=== PATIENT | male | born 1990 | race Caucasian/White ===

== ENCOUNTER 2017-05-22 11:28 | Emergency (ER) | payer OTHER ==
--- NOTE | 2017-05-22 12:58 | DIAGNOSTIC IMAGING REPORT ---
PROCEDURE: US SCROTUM/TESTICLE INDICATION: SCROTAL PAIN TECHNIQUE: Harvey scale and color Doppler sonographic images through the scrotum were obtained. COMPARISON: None. FINDINGS: RIGHT TESTICLE: Measures 4.0 x 2.7 x 2.5 cm with normal echo structure and vascularity. Normal epididymis. LEFT TESTICLE: Measures 4.0 x 2.5 x 2.3 cm with normal echo structure. Normal vascularity at the beginning of the exam but markedly diminished vascularity at the end of the exam although still present. Normal epididymis. IMPRESSION: 1. Left testicular vascularity was noted to diminish markedly during the examination, although still present. This raise the possibility of intermittent testicular torsion 2. Normal right testicle 3. Results discussed with Dr. Lucero
--- NOTE | 2017-05-22 12:59 | ED NURSING NOTES ---
Clinical Report - Nurses [facility] [address] [place] [address] 05/22/2017 11:30 [id number] TRI[facility] <<STRICKEN ENTRY-- Triage time 11:38 May 22 2017. Acuity: LEVEL 4. Chief Complaint: PAIN WITH URINATION and URINARY RETENTION and TESTICULAR PAIN. Alert. No acute distress. --11:42 Vinnie Gongora R.N. --END STRIKE>> Correction --12:14 Vinnie Gongora R.N. 11:38 05/22/17. BP: 128/75. HR: 53. RR: 20. O2 saturation: 98% on room air. Temp: 97.9 F. Pain level now: 05/17. --11:42 Vinnie Gongora R.N. Triage time 1138 May 22 2017. Chief Complaint: TESTICULAR PAIN. --12:15 Vinnie Gongora R.N. Weight: 61.2 kg. Height/Length: 68 inches. BMI: 20.5. --11:37 Vinnie Gongora R.N. Medications None. --11:38 Vinnie Gongora R.N. Allergies No Known Drug Allergy. --11:38 Vinnie Gongora R.N. History Arrived by private vehicle. Historian: patient. This started just prior to arrival and today. ( Pt was in the shower when he noticed some "testicular tension" that was abrupt in onset has progressively gotten worse. He denies any injury, states his L testicle feels like it is twisting and feels cool to the touch.). He has had discomfort with urination. No fever. PAST MEDICAL HX: Immunizations: up-to-date. SOCIAL HX: Heavy tobacco smoker- less than 1 pack per day. History of drug use: heroin, methamphetamines. No alcohol use. No infectious disease exposure. ABUSE ASSESSMENT: No report of abuse. SELF HARM ASSESSMENT: A self harm assessment was performed. The patient answered "no" to the question "Do you have thoughts of harming or killing yourself?". FALL RISK ASSESSMENT: Fall risk assessment completed. No fall risk identified. NUTRITIONAL RISK ASSESSMENT: The nutritional risk assessment revealed no deficiencies. FUNCTIONAL ASSESSMENT: Functional assessment: no impairments noted. LEARNING NEEDS ASSESSMENT: The learning needs assessment revealed no barriers. SKIN INTEGRITY ASSESSMENT: Skin integrity risk assessment completed. No skin integrity risk identified. --11:42 Vinnie Gongora R.N. Arrived by private vehicle. Historian: patient. Accompanied by friend and (in [place]). This started just prior to arrival. --12:15 Vinnie Gongora R.N. PROBLEMS: Anxiety Reaction. Lifestyle / Substance Problems. Chest Pain of GI Origin. --11:38 Vinnie Gongora R.N. ADDITIONAL SURGERIES: no known surgeries. Interventions ID band on patient. To treatment room. --11:42 Vinnie Gongora R.N. PHYSICAL ASSESSMENT Ambulatory to room. GENERAL / NEURO / PSYCH: Alert. Oriented X 4. Appears in pain and in distress. HEENT: Mucous membranes are pink. RESPIRATORY: Mild respiratory distress. CVS: Capillary refill less than 2 seconds. SKIN: Skin is warm and dry. --11:44 Vinnie Gongora R.N. GI / : Abdomen soft. Guarding present in the suprapubic area and lower abdomen. Bowel sounds within normal limits. Normal genitalia. No genital lesions noted. --12:22 Vinnie Gongora R.N. NURSING PROGRESS NOTES The plan of care for this patient has been created. Monitoring of patient in place. Patient gowned. Head of bed elevated. Reassurance given. Two patient identifiers checked. Call light placed in reach. Side rails up x 2. Brakes of bed on. Patient ready for evaluation- ED physician notified. --11:44 Vinnie Gongora R.N. ( in to assess Pt, Pt is in severe pain, orders for pain and nausea meds obtained and given, IVF started, US ordered. Pt resting in room, monitoring VS.). --11:58 Vinnie Gongora R.N. 11:59 05/22/2017 Site #1 started via IV in the left antecubital space with an 20g angiocath, with aseptic technique and good blood return; one attempt. Blood drawn: rainbow set. Saline lock flushed with saline. --11:59 Vinnie Gongora R.N. 11:59 05/22/2017 Zofran (Ondansetron HCl) IVP 4 mg given over 2 minute(s) via site #1. IV patency established. IV site checked: no pain, redness, or swelling. IV flushed thoroughly pre- and post-medication administration. IVP given by RN. --11:59 Vinnie Gongora R.N. 11:05/22/2017 Dilaudid (HYDROmorphone HCl PF) IVP 1 mg given over 2 minute(s) via site #1. Sedative warning given to the patient. IV patency established. IV site checked: no pain, redness, or swelling. IV flushed thoroughly pre- and post-medication administration. IVP given by RN. --11:59 Vinnie Gongora R.N. 11:05/22/2017 Started bag #1 1000 mL IV Fluids IV NS (Saline); bolus of 500 mL over 1 hour(s) via site #1. Allergies verified and confirmed 5 rights. IV patency established. IV site checked: no pain, redness, or swelling. IV flushed thoroughly pre- and post-medication administration. Completed per protocol. --11:59 Vinnie Gongora R.N. ( ultrasound called states they will be over in 20 minutes for exam. Told chief radiologic technologist that exam is needed urgently due to possibility of torsion.). --12:17 Adri Feldman R.N. Checked patient name and birthdate: patient confirmed. Instructions provided to collect clean catch urine and patient verbalized understanding. Clean catch urine collected with return of yellow-colored urine; sample sent to lab. Specimen labeled in the presence of the patient. ( Pt provided urine sample without difficulty.). --12:20 Vinnie Gongora R.N. ( US tech at bedside now.). --12:29 Vinnie Gongora R.N. 12:30 05/22/2017 Zofran IVP Response: no adverse reaction symptoms are the same. --12:30 Vinnie Gongora R.N. 12:30 05/22/2017 Dilaudid IVP Response: pain is improving. Symptoms are the same. --12:30 Vinnie Gongora R.N. 12:45 05/22/17. BP: 135/82. HR: 80. RR: 20. O2 saturation: 100% on room air. Pain level now: 04/17. --12:47 Vinnie Gongora R.N. ( US completed, Pt c/o pain, states his mouth is dry, provided him with oral swab, VSS.). --12:47 Vinnie Gongora R.N. 12:51 05/22/2017 Dilaudid (HYDROmorphone HCl PF) IVP 1 mg given over 2 minute(s) via site #1. Allergies verified, confirmed 5 rights and sedative warning given to the patient. IV patency established. IV site checked: no pain, redness, or swelling. IV flushed thoroughly pre- and post-medication administration. IVP given by RN. --12:51 Vinnie Gongora R.N. ( Pt's friend (Boogie) at bedside.). --13:03 Vinnie Gongora R.N. 13:18 05/22/2017 IV Fluids IV NS Discontinued: bag #1 infused. Total amount infused: 1000 mL. IV patency established. IV site checked: no pain, redness, or swelling. IV flushed thoroughly. --13:18 Vinnie Gongora R.N. 13:22 05/22/17. BP: 128/94. HR: 74. RR: 16. O2 saturation: 97% on room air. Pain level now: 03/17. --13:23 Vinnie Gongora R.N. 13:34 05/22/2017 Dilaudid IVP Response: no adverse reaction pain is worsening. --13:34 Vinnie Gongora R.N. 13:37 05/22/2017 Dilaudid (HYDROmorphone HCl PF) IVP 1 mg given over 2 minute(s) via site #1. Allergies verified, confirmed 5 rights and sedative warning given to the patient. IV patency established. IV site checked: no pain, redness, or swelling. IV flushed thoroughly pre- and post-medication administration. IVP given by RN. --13:37 Vinnie Gongora R.N. ( MD in to discuss recommended Plan of Care for Pt including transfer of care to [facility] to care of Dr. Cohen (urologist). Pt verbalized to me that he does not want to do that, has no money to pay for an ambulance. MD discussed risks/benefits and urgent need for Pt to get to [facility]. Reviewed other risks of traveling via ambulance, Pt's friend at bedside. Pt tearful but verbalized understanding and agreed to be transported via [facility]; COBRA form signed.). --13:44 Vinnie Gongora R.N. 13:41 05/22/17. Temp: 97.8 F. --13:44 Vinnie Gongora R.N. Intake & Output late entry - 12:00 05/22/17. Urine: 200 mL, with return of yellow-colored urine. --12:53 Vinnie Gongora R.N. Urine: 300 mL - urinal, with return of yellow-colored urine. --13:16 Vinnie Gongora R.N. DISPOSITION / DISCHARGE late entry - 13:45 05/22/17. Departure time: 13:45 May 22 2017. Condition at departure: stable. Transferred to [facility]. Summary of care provided to transport team via paper (Care transferred to [facility] Transported via ambulance by transport team with IV. ( Pt transported to [facility], stable, medicated with pain meds prior to transport, VSS, understanding of POC verified. Belongings in hand.). Patient's personal items include: shirt, pants, undergarments, socks, shoes, wallet and cell phone; items were placed in belongings bag and transported with the patient. Collection of belongings was witnessed by 1 nurse. --14:08 Vinnie Gongora R.N. 13:45 05/22/17. BP: 105/64. HR: 80. RR: 18. O2 saturation: 95% on room air. Temp: deferred. Pain level now: 03/17. --14:08 Vinnie Gongora R.N. Locked/Released at 05/22/2017 17:02 by Vinnie Gongora R.N.
--- NOTE | 2017-05-22 12:59 | ED NURSING NOTES ---
Clinical Report - Nurses [facility] [address] [place] [address] 05/22/2017 11:30 [id number] <<STRICKEN ENTRY-- Triage time 11:38 May 22 2017. Acuity: LEVEL 4. Chief Complaint: PAIN WITH URINATION and URINARY RETENTION and TESTICULAR PAIN. Alert. No acute distress. --11:42 Vinnie Gongora R.N. --END STRIKE>> Correction --12:14 Vinnie Gongora R.N. 11:38 05/22/17. BP: 128/75. HR: 53. RR: 20. O2 saturation: 98% on room air. Temp: 97.9 F. Pain level now: 05/17. --11:42 Vinnie Gongora R.N. Triage time 1138 May 22 2017. Chief Complaint: TESTICULAR PAIN. --12:15 Vinnie Gongora R.N. Weight: 61.2 kg. Height/Length: 68 inches. BMI: 20.5. --11:37 Vinnie Gongora R.N. Medications None. --11:38 Vinnie Gongora R.N. Allergies No Known Drug Allergy. --11:38 Vinnie Gongora R.N. History Arrived by private vehicle. Historian: patient. This started just prior to arrival and today. ( Pt was in the shower when he noticed some "testicular tension" that was abrupt in onset has progressively gotten worse. He denies any injury, states his L testicle feels like it is twisting and feels cool to the touch.). He has had discomfort with urination. No fever. PAST MEDICAL HX: Immunizations: up-to-date. SOCIAL HX: Heavy tobacco smoker- less than 1 pack per day. History of drug use: heroin, methamphetamines. No alcohol use. No infectious disease exposure. ABUSE ASSESSMENT: No report of abuse. SELF HARM ASSESSMENT: A self harm assessment was performed. The patient answered "no" to the question "Do you have thoughts of harming or killing yourself?". FALL RISK ASSESSMENT: Fall risk assessment completed. No fall risk identified. NUTRITIONAL RISK ASSESSMENT: The nutritional risk assessment revealed no deficiencies. FUNCTIONAL ASSESSMENT: Functional assessment: no impairments noted. LEARNING NEEDS ASSESSMENT: The learning needs assessment revealed no barriers. SKIN INTEGRITY ASSESSMENT: Skin integrity risk assessment completed. No skin integrity risk identified. --11:42 Vinnie Gongora R.N. Arrived by private vehicle. Historian: patient. Accompanied by friend and (in [place]). This started just prior to arrival. --12:15 Vinnie Gongora R.N. PROBLEMS: Anxiety Reaction. Lifestyle / Substance Problems. Chest Pain of GI Origin. --11:38 Vinnie Gongora R.N. ADDITIONAL SURGERIES: no known surgeries. Interventions ID band on patient. To treatment room. --11:42 Vinnie Gongora R.N. PHYSICAL ASSESSMENT Ambulatory to room. GENERAL / NEURO / PSYCH: Alert. Oriented X 4. Appears in pain and in distress. HEENT: Mucous membranes are pink. RESPIRATORY: Mild respiratory distress. CVS: Capillary refill less than 2 seconds. SKIN: Skin is warm and dry. --11:44 Vinnie Gongroa R.N. GI / : Abdomen soft. Guarding present in the suprapubic area and lower abdomen. Bowel sounds within normal limits. Normal genitalia. No genital lesions noted. --12:22 Vinnie Gongora R.N. NURSING PROGRESS NOTES The plan of care for this patient has been created. Monitoring of patient in place. Patient gowned. Head of bed elevated. Reassurance given. Two patient identifiers checked. Call light placed in reach. Side rails up x 2. Brakes of bed on. Patient ready for evaluation- ED physician notified. --11:44 Vinnie Gongora R.N. ( in to assess Pt, Pt is in severe pain, orders for pain and nausea meds obtained and given, IVF started, US ordered. Pt resting in room, monitoring VS.). --11:58 Vinnie Gongora R.N. 11:59 05/22/2017 Site #1 started via IV in the left antecubital space with an 20g angiocath, with aseptic technique and good blood return; one attempt. Blood drawn: rainbow set. Saline lock flushed with saline. --11:59 Vinnie Gongora R.N. 11:59 05/22/2017 Zofran (Ondansetron HCl) IVP 4 mg given over 2 minute(s) via site #1. IV patency established. IV site checked: no pain, redness, or swelling. IV flushed thoroughly pre- and post-medication administration. IVP given by RN. --11:59 Vinnie Gongora R.N. 11:05/22/2017 Dilaudid (HYDROmorphone HCl PF) IVP 1 mg given over 2 minute(s) via site #1. Sedative warning given to the patient. IV patency established. IV site checked: no pain, redness, or swelling. IV flushed thoroughly pre- and post-medication administration. IVP given by RN. --11:59 Vinnie Gongora R.N. 11:05/22/2017 Started bag #1 1000 mL IV Fluids IV NS (Saline); bolus of 500 mL over 1 hour(s) via site #1. Allergies verified and confirmed 5 rights. IV patency established. IV site checked: no pain, redness, or swelling. IV flushed thoroughly pre- and post-medication administration. Completed per protocol. --11:59 Vinnie Gongora R.N. ( ultrasound called states they will be over in 20 minutes for exam. Told air conditioning technician that exam is needed urgently due to possibility of torsion.). --12:17 Adri Feldman R.N. Checked patient name and birthdate: patient confirmed. Instructions provided to collect clean catch urine and patient verbalized understanding. Clean catch urine collected with return of yellow-colored urine; sample sent to lab. Specimen labeled in the presence of the patient. ( Pt provided urine sample without difficulty.). --12:20 Vinnie Gongora R.N. ( US tech at bedside now.). --12:29 Vinnie Gongora R.N. 12:30 05/22/2017 Zofran IVP Response: no adverse reaction symptoms are the same. --12:30 Vinnie Gongora R.N. 12:30 05/22/2017 Dilaudid IVP Response: pain is improving. Symptoms are the same. --12:30 Vinnie Gongora R.N. 12:45 05/22/17. BP: 135/82. HR: 80. RR: 20. O2 saturation: 100% on room air. Pain level now: 04/17. --12:47 Vinnie Gongora R.N. ( US completed, Pt c/o pain, states his mouth is dry, provided him with oral swab, VSS.). --12:47 Vinnie Gongora R.N. 12:51 05/22/2017 Dilaudid (HYDROmorphone HCl PF) IVP 1 mg given over 2 minute(s) via site #1. Allergies verified, confirmed 5 rights and sedative warning given to the patient. IV patency established. IV site checked: no pain, redness, or swelling. IV flushed thoroughly pre- and post-medication administration. IVP given by RN. --12:51 Vinnie Gongora R.N. ( Pt's friend (Boogie) at bedside.). --13:03 Vinnie Gongora R.N. 13:18 05/22/2017 IV Fluids IV NS Discontinued: bag #1 infused. Total amount infused: 1000 mL. IV patency established. IV site checked: no pain, redness, or swelling. IV flushed thoroughly. --13:18 Vinnie Gongora R.N. 13:22 05/22/17. BP: 128/94. HR: 74. RR: 16. O2 saturation: 97% on room air. Pain level now: 03/17. --13:23 Vinnie Gongora R.N. 13:34 05/22/2017 Dilaudid IVP Response: no adverse reaction pain is worsening. --13:34 Vinnie Gongora R.N. 13:37 05/22/2017 Dilaudid (HYDROmorphone HCl PF) IVP 1 mg given over 2 minute(s) via site #1. Allergies verified, confirmed 5 rights and sedative warning given to the patient. IV patency established. IV site checked: no pain, redness, or swelling. IV flushed thoroughly pre- and post-medication administration. IVP given by RN. --13:37 Vinnie Gongora R.N. ( MD in to discuss recommended Plan of Care for Pt including transfer of care to [facility] to care of Dr. Cohen (urologist). Pt verbalized to me that he does not want to do that, has no money to pay for an ambulance. MD discussed risks/benefits and urgent need for Pt to get to [facility]. Reviewed other risks of traveling via ambulance, Pt's friend at bedside. Pt tearful but verbalized understanding and agreed to be transported via [facility]; COBRA form signed.). --13:44 Vinnie Gongora R.N. 13:41 05/22/17. Temp: 97.8 F. --13:44 Vinnie Gongora R.N. Intake & Output late entry - 12:00 05/22/17. Urine: 200 mL, with return of yellow-colored urine. --12:53 Vinnie Gongora R.N. Urine: 300 mL - urinal, with return of yellow-colored urine. --13:16 Vinnie Gongora R.N. DISPOSITION / DISCHARGE late entry - 13:45 05/22/17. Departure time: 13:45 May 22 2017. Condition at departure: stable. Transferred to [facility]. Summary of care provided to transport team via paper (Care transferred to [facility].). Transported via ambulance by transport team with IV. ( Pt transported to [facility], stable, medicated with pain meds prior to transport, VSS, understanding of POC verified. Belongings in hand.). Patient's personal items include: shirt, pants, undergarments, socks, shoes, wallet and cell phone; items were placed in belongings bag and transported with the patient. Collection of belongings was witnessed by 1 nurse. --14:08 Vinnie Gongora R.N. 13:45 05/22/17. BP: 105/64. HR: 80. RR: 18. O2 saturation: 95% on room air. Temp: deferred. Pain level now: 03/17. --14:08 Vinnie Gongora R.N. Locked/Released at 05/22/2017 17:02 by Vinnie Gongora R.N.
--- NOTE | 2017-05-22 12:59 | ED ORDER SUMMARY ---
..... Patient: KETURAH MORIN OrderSheet [facility] VisitID: [id number] [place] [address] 27y, M Registration Date/Time: 05/22/2017 ORDER SHEET Weight: 61.2 kg Allergies: No Known Drug Allergy GENERAL ORDERS: US Scrotum/Testicular Urgent (11:55 05/22/2017 Briana YEPEZ) (Ack 11:56 Butch) (12:50 MCook R.N.) CBC w Diff Urgent (11:55 05/22/2017 Briana YEPEZ) (Ack 11:56 Butch) (11:57 MCook R.N.) CMP Urgent (11:55 05/22/2017 Briana YEPEZ) (Ack 11:56 Butch) (11:57 MCook R.N.) UA-Culture if indicated Urgent (11:55 05/22/2017 Briana YEPEZ) (Ack 11:56 Butch) (12:22 MCook R.N.) Amylase Urgent (11:55 05/22/2017 Briana YEPEZ) (Ack 11:56 Butch) (11:57 MCook R.N.) Lipase Urgent (11:55 05/22/2017 Briana YEPEZ) (Ack 11:56 Butch) (11:57 MCook R.N.) NPO (11:55 05/22/2017 Briana YEPEZ) (11:57 MCook R.N.) Urine Drug Screen Urgent (11:05/22/2017 Briana EYPEZ) (Sent 11:57 MCook R.N.) (Ack 11:57 Butch) (12:22 MCook R.N.) MEDICATION ORDERS: IV FLUIDS: IV NS : initial bolus 500 mL (1000 mL/hr), then 125 mL/hr for 4h (NOW); Urgent (11:54 05/22/2017 Briana YEPEZ) (11:59 MCook R.N.) Dilaudid IV 1 mg (HIGH ALERT MEDICATION, NOW) (11:54 05/22/2017 Briana YEPEZ) (11:59 MCook R.N.) Zofran IV 4 mg (NOW) (11:55 05/22/2017 Briana YEPEZ) (11:59 Khai Hess) Dilaudid IV 1 mg (1 mg q 15 minutes for a total of 4 mg) (12:50 05/22/2017 Khai Hess verbal order read back to Briana YEPEZ) (12:51 Khai Hess) ORDER SHEET NOTES: [Electronically signed by Jerman Lucero MD (13:50 05/22/2017)] [Electronically signed by Vinnie Gongora R.N. (17:02 05/22/2017)] [Electronically locked/signed by Vinnie Gongora R.N. (17:02 05/22/2017)]
--- NOTE | 2017-05-22 12:59 | ED CLINICAL REPORT ---
Clinical Report - Physicians/Mid Levels [facility] [address] [place] [address] 05/22/2017 11:30 [id number] Time Seen: 11:48. Arrived- By private vehicle. Historian- patient. HISTORY OF PRESENT ILLNESS Chief Complaint: DYSURIA. This started just prior to arrival today about 30 minutes ago and is still present. The problem is described as severe. It was abrupt in onset and has been constant. No penile discharge, discomfort with urination, urinary frequency or urgency of urination. He has had severe testicular pain, involving the left testicle. The patient has not had an exposure to a sexually transmitted disease. (he was in the shower when he noticed some "testicular tension" that was abrupt in onset has progressively gotten worse. He denies any injury, states his L testicle feels like it is twisting and feels cool to the touch). Similar symptoms previously: None. REVIEW OF SYSTEMS No chills, fever, sweats, calf pain or chest pain. No cough, difficulty breathing, pedal edema, palpitations or abdominal pain. No constipation, diarrhea, nausea, vomiting or urinary problems. last meal 2 hours ago. All systems otherwise negative, except as recorded above. SOCIAL HISTORY Current every day heavy tobacco smoker (cigarette)- less than 1 pack per day. History of drug use: heroin, methamphetamines. FAMILY HISTORY Denies family medical history. ADDITIONAL NOTES The nursing notes have been reviewed. PHYSICAL EXAM Vital Signs: 05/22/2017 11:38 BP: 128/75. HR: 53. RR: 20. O2 saturation: 98%. Temp: 97.9 F. Pain level now: 05/17. Have been reviewed. Appearance: Alert. Appears to be in pain. ENT: Pharynx normal. Neck: Neck supple. CVS: Heart sounds normal. Respiratory: No respiratory distress. Breath sounds normal. Abdomen: Soft and nontender. Bowel sounds normal. No organomegaly. No mass. Back: Normal external inspection. No CVA tenderness. : Severe tenderness of the left testicle, epididymis and spermatic cord. No urethral discharge, genital lesion, phimosis, paraphimosis or hernia mass. No scrotal mass or swelling or inguinal lymphadenopathy. Skin: Skin warm and dry. Normal skin color. Normal skin turgor. Extremities: Extremities exhibit normal ROM. LABS, X-RAYS, AND EKG Scrotal Sonogram: IMPRESSION: 1. Left testicular vascularity was noted to diminish markedly during the examination, although still present. This raise the possibility of intermittent testicular torsion 2. Normal right testicle. The study was interpreted contemporaneously by me and discussed with the radiologist. Laboratory Tests: UA-Culture if indicated: (ALLYSSA: 05/22/2017 12:16) ( [facility] 12[facility]43[facility] Final results Test Result Flag Units (Reference) URINE COLOR YELLOW URINE APPEARANCE CLEAR0 0N This is a corrected result 05/22/17 1242:UR. APPEARANCE previously reported as: CLEAR URINE GLUCOSE NEGATIVE (NEGATIVE) URINE BILIRUBIN NEGATIVE (NEGATIVE) URINE KETONE NEGATIVE (NEGATIVE) URINE SPECIFIC GRAVITY 1.010 (1.010-1.030) URINE PH 6.0 (5.0-8.0) URINE PROTEIN TRACE (NEGATIVE) URINE UROBILINOGEN 0.2 EU/dL (0.2-1.0) URINE NITRITE NEGATIVE (NEGATIVE) URINE BLOOD NEGATIVE (NEGATIVE) URINE LEUK ESTERASE NEGATIVE (NEGATIVE) URINE RBC 3-5 rbc/hpf (0-1) URINE WBC 0-1 wbc/hpf (0-1) URINE EPITHELIAL CELLS 0-1 EPI/hpf (0-5) URINE BACTERIA NONE SEEN (NONE SEEN) URINE COMMENT CULT NOT INDICATED URINE CULTURES ARE SET-UP BASED ON THE FOLLOWING CRITERIA:POSITIVE NITRITEPOSITIVE LEUKOCYTE ESTERASEGREATER THAN 10 WHITE BLOOD CELLSMODERATE (2+) OR GREATER BACTERIA CBC w Diff: (ALLYSSA: 05/22/2017 11:59) ( [facility] 05/22/2017 12:13) Final results Test Result Flag Units (Reference) WHITE BLOOD COUNT 10.6 K/uL (4.5-11.5) RED BLOOD COUNT 4.45 L M/uL (4.50-5.90) HEMOGLOBIN 13.0 L gm/dL (13.5-17.5) HEMATOCRIT 38.9 L % (41.0-53.0) MEAN CELL VOLUME 88 fL (80-100) MEAN CORPUSCULAR HGB 29 pg (26-34) MEAN CORPUSCULAR HGB CONC 33 g/dL (31-37) RED CELL DISTRIBUTION WIDTH 13.3 % (11.6-14.8) PLATELET COUNT 324 K/uL (150-400) NEUTROPHIL % 61.1 % (50-75) LYMPH % 27.1 % (25-40) MONO % 7.7 % (3-14) EOSINOPHIL % 3.0 % (0-4) BASOPHIL % 1.1 % (0-2) Urine Drug Screen: (ALLYSSA: 05/22/2017 12:16) ( MsgRcvd 05/22/2017 12:50) Final results Test Result Flag Units (Reference) AMPHETAMINE/METHAMPHETAMINE POSITIVE H (NEGATIVE) BARBITURATE NEGATIVE (NEGATIVE) BENZODIAZEPINE NEGATIVE (NEGATIVE) CANNABINOID NEGATIVE (NEGATIVE) COCAINE NEGATIVE (NEGATIVE) ECSTASY NEGATIVE (NEGATIVE) METHADONE NEGATIVE (NEGATIVE) OPIATE POSITIVE H (NEGATIVE) The urine drug screen is a qualitative screening test fordrug overdose and abuse. All screen results should beconsidered as presumptive.Drugs screened for are as follows:BenzodiazepinesCocaineAmphetamines/MetamphetaminesTHC (Tetrahydrocannabinol)OpiatesBarbituratesEcstasyMethadonePositive results are unconfirmed. For confirmation, notifythe lab for the specimen to be sent to the reference lab.All confirmations must be performed by a differentmethodology.The ingestion of natural herbal and plant productscontaining Ephedra/Ephedra metabolites can produce in urineone or more substances capable of cross reacting withamphetamine/methamphetamine immunoassays. These testsprovide a preliminary result only. A more specificalternative chemical method must be used to obtain aconfirmed analytical result. CMP: (ALLYSSA: 05/22/2017 11:59) ( MsgRcvd 05/22/2017 12:30) Final results Test Result Flag Units (Reference) GLUCOSE 78 mg/dL (70-110) BUN 13 mg/dL (7-18) CREATININE 0.9 mg/dL (0.6-1.3) Estimated GFR >60 mL/min Estimated GFR- >60 mL/min Note: Persistent reduction over 3 months in eGFR<60 mL/min/1.73 m2 defines CKD. Patients with eGFR values>=60 mL/min/1.73 m2 may also have CKD if evidence ofpersistent proteinuria. Additional information may be foundat www.kidney.org. SODIUM 140 mmol/L (136-145) POTASSIUM 3.4 L mmol/L (3.5-5.1) CHLORIDE 104 mmol/L (98-107) CARBON DIOXIDE 28 mmol/L (21-32) CALCIUM 9.0 mg/dL (8.5-10.1) TOTAL PROTEIN 7.9 g/dL (6.4-8.2) ALBUMIN 4.3 g/dL (3.3-5.0) BILIRUBIN, TOTAL 0.3 mg/dL (0.0-1.0) ALKALINE PHOSPHATASE 98 U/L (46-116) AST (SGOT) 21 U/L (15-37) ALT (SGPT) 19 U/L (12-78) LIPASE 141 U/L (73-393) AMYLASE 87 U/L (25-115) . PROGRESS AND PROCEDURES Course of Care: Patient is stable. Consult obtained from urology. Cohen - he wants the patient transferred to [facility] emergency room. Therefore I contacted Dr. Brink in the ER and they accept the patient in transfer. Case discussed. Phone consult only. Patient/family counseled. Old medical records reviewed. Disposition: Transferred. CLINICAL IMPRESSION Substance abuse- heroin, methamphetamines. Left testicular torsion. (Electronically signed by Jerman Lucero MD 05/22/2017 13:50)
--- NOTE | 2017-05-22 12:59 | ED ORDER SUMMARY ---
..... Patient: KETURAH MORIN OrderSheet [facility] VisitID: [id number] [place] [address] 27y, M Registration Date/Time: 05/22/2017 ORDER SHEET Weight: 61.2 kg Allergies: No Known Drug Allergy GENERAL ORDERS: US Scrotum/Testicular Urgent (11:55 05/22/2017 Briana YEPEZ) (Ack 11:56 Butch) (12:50 MCook R.N.) CBC w Diff Urgent (11:55 05/22/2017 Briana YEPEZ) (Ack 11:56 Butch) (11:57 MCook R.N.) CMP Urgent (11:55 05/22/2017 Briana YEPEZ) (Ack 11:56 Butch) (11:57 MCook R.N.) UA-Culture if indicated Urgent (11:55 05/22/2017 Briana YEPEZ) (Ack 11:56 Butch) (12:22 MCook R.N.) Amylase Urgent (11:55 05/22/2017 Briana YEPEZ) (Ack 11:56 Butch) (11:57 MCook R.N.) Lipase Urgent (11:55 05/22/2017 Briana YEPEZ) (Ack 11:56 Butch) (11:57 MCook R.N.) NPO (11:55 05/22/2017 Briana YEPEZ) (11:57 MCook R.N.) Urine Drug Screen Urgent (11:05/22/2017 Briana YEPEZ) (Sent 11:57 MCook R.N.) (Ack 11:57 Butch) (12:22 MCook R.N.) MEDICATION ORDERS: IV FLUIDS: IV NS : initial bolus 500 mL (1000 mL/hr), then 125 mL/hr for 4h (NOW); Urgent (11:54 05/22/2017 Briana YEPEZ) (11:59 MCook R.N.) Dilaudid IV 1 mg (HIGH ALERT MEDICATION, NOW) (11:54 05/22/2017 Briana YEPEZ) (11:59 MCook R.N.) Zofran IV 4 mg (NOW) (11:55 05/22/2017 Briana YEPEZ) (11:59 Khai Hess) Dilaudid IV 1 mg (1 mg q 15 minutes for a total of 4 mg) (12:50 05/22/2017 Khai Hess verbal order read back to Briana YEPEZ) (12:51 Khai Hess) ORDER SHEET NOTES: [Electronically signed by Jerman Lucero MD (13:50 05/22/2017)] [Electronically signed by Vinnie Gongora R.N. (17:02 05/22/2017)] [Electronically locked/signed by Vinnie Gongora R.N. (17:02 05/22/2017)]
--- NOTE | 2017-05-22 17:03 | ED MAR SUMMARY ---
..... Medication Administration Record [facility] [address] [place] [address] Patient: KETURAH MORIN Visit ID: [id number] 27y, M Weight: 61.2 kg Height/Length: 68 in BMI: 20.5 ALLERGIES: No Known Drug Allergy Start 11:05/22/2017 Vinnie Gongora R.N., Stop 13:18 05/22/2017 Vinnie Gongora R.N. Medication Administered: IV NS (SALINE), Dose: IV Fluids, Bolus: 500 mL over 1 hour(s), Dispensed: 1000 mL bag, Site: #1 left AC. Medication Ordered: IV NS : initial bolus 500 mL (1000 mL/hr), then 125 mL/hr for 4h (NOW); Urgent. Given 11:05/22/2017 Vinnie Gongora R.N. Medication Administered: DILAUDID [IVP] (HYDROMORPHONE HCL PF), Dose: 1 mg IVP over 2 minute(s), Site: #1 left AC. Medication Ordered: Dilaudid IV 1 mg (HIGH ALERT MEDICATION, NOW). Given 11:05/22/2017 Vinnie Gongora R.N. Medication Administered: ZOFRAN [IVP] (ONDANSETRON HCL), Dose: 4 mg IVP over 2 minute(s), Site: #1 left AC. Medication Ordered: Zofran IV 4 mg (NOW). Given 12:51 05/22/2017 Vinnie Gongora R.N. Medication Administered: DILAUDID [IVP] (HYDROMORPHONE HCL PF), Dose: 1 mg IVP over 2 minute(s), Site: #1 left AC. Medication Ordered: Dilaudid IV 1 mg (1 mg q 15 minutes for a total of 4 mg). Given 13:37 05/22/2017 Vinnie Gongora R.N. Medication Administered: DILAUDID [IVP] (HYDROMORPHONE HCL PF), Dose: 1 mg IVP over 2 minute(s), Site: #1 left AC. Medication Ordered: Dilaudid IV 1 mg (1 mg q 15 minutes for a total of 4 mg).
--- NOTE | 2017-05-22 17:03 | ED MED RECONCILIATION SUMMARY ---
Patient: KETURAH MORIN Medication Reconciliation Report [facility] VisitID: [id number] [address] [place] [address] 27y, M Registration Date/Time: 05/22/2017 Weight: 61.2 kg Height/Length: 68 in. BMI: 20.5 ALLERGIES: No Known Drug Allergy The patient's Home Medications are listed below: NONE. The source(s) of the original Home Medication information: Not obtained. The following Medications were given to the patient in the Emergency Department: Zofran [IVP] IVP 4 mg, administered: 05/22/2017 11:59:00 AM Dilaudid [IVP] IVP 1 mg, administered: 05/22/2017 11:59:00 AM IV NS IV Fluids bolus 500 mL over 1 hour(s), administered: 05/22/2017 11:59:00 AM Dilaudid [IVP] IVP 1 mg, administered: 05/22/2017 12:51:00 PM Dilaudid [IVP] IVP 1 mg, administered: 05/22/2017 1:37:00 PM The following Medications were prescribed to the patient: None.
--- NOTE | 2017-05-22 17:03 | ED MED RECONCILIATION SUMMARY ---
Patient: KETURAH MORIN Medication Reconciliation Report [facility] VisitID: [id number] [address] [place] [address] 27y, M Registration Date/Time: 05/22/2017 Weight: 61.2 kg Height/Length: 68 in. BMI: 20.5 ALLERGIES: No Known Drug Allergy The patient's Home Medications are listed below: NONE. The source(s) of the original Home Medication information: Not obtained. The following Medications were given to the patient in the Emergency Department: Zofran [IVP] IVP 4 mg, administered: 05/22/2017 11:59:00 AM Dilaudid [IVP] IVP 1 mg, administered: 05/22/2017 11:59:00 AM IV NS IV Fluids bolus 500 mL over 1 hour(s), administered: 05/22/2017 11:59:00 AM Dilaudid [IVP] IVP 1 mg, administered: 05/22/2017 12:51:00 PM Dilaudid [IVP] IVP 1 mg, administered: 05/22/2017 1:37:00 PM The following Medications were prescribed to the patient: None.
--- NOTE | 2017-05-22 17:03 | ED DISCHARGE INSTRUCTIONS ---
Patient: KETURAH MORIN General Instructions [facility] VisitID: [id number] [address] [place] [address] 27y, M Registration Date/Time: 05/22/2017 Substance abuse- heroin, methamphetamines. Left testicular torsion. (Electronically signed by Jerman Lucero MD 05/22/2017 13:50)
--- NOTE | 2017-05-22 17:03 | ED DISCHARGE INSTRUCTIONS ---
Patient: KETURAH MORIN General Instructions [facility] VisitID: [id number] [address] [place] [address] 27y, M Registration Date/Time: 05/22/2017 Substance abuse- heroin, methamphetamines. Left testicular torsion. (Electronically signed by Jerman Lucero MD 05/22/2017 13:50)
--- NOTE | 2017-05-22 17:03 | ED MAR SUMMARY ---
..... Medication Administration Record [facility] [address] [place] [address] Patient: KETURAH MORIN Visit ID: [id number] 27y, M Weight: 61.2 kg Height/Length: 68 in BMI: 20.5 ALLERGIES: No Known Drug Allergy Start 11:05/22/2017 Vinnie Gongora R.N., Stop 13:18 05/22/2017 Vinnie Gongora R.N. Medication Administered: IV NS (SALINE), Dose: IV Fluids, Bolus: 500 mL over 1 hour(s), Dispensed: 1000 mL bag, Site: #1 left AC. Medication Ordered: IV NS : initial bolus 500 mL (1000 mL/hr), then 125 mL/hr for 4h (NOW); Urgent. Given 11:05/22/2017 Vinnie Gongora R.N. Medication Administered: DILAUDID [IVP] (HYDROMORPHONE HCL PF), Dose: 1 mg IVP over 2 minute(s), Site: #1 left AC. Medication Ordered: Dilaudid IV 1 mg (HIGH ALERT MEDICATION, NOW). Given 11:05/22/2017 Vinnie Gongora R.N. Medication Administered: ZOFRAN [IVP] (ONDANSETRON HCL), Dose: 4 mg IVP over 2 minute(s), Site: #1 left AC. Medication Ordered: Zofran IV 4 mg (NOW). Given 12:51 05/22/2017 Vinnie Gongora R.N. Medication Administered: DILAUDID [IVP] (HYDROMORPHONE HCL PF), Dose: 1 mg IVP over 2 minute(s), Site: #1 left AC. Medication Ordered: Dilaudid IV 1 mg (1 mg q 15 minutes for a total of 4 mg). Given 13:37 05/22/2017 Vinnie Gongora R.N. Medication Administered: DILAUDID [IVP] (HYDROMORPHONE HCL PF), Dose: 1 mg IVP over 2 minute(s), Site: #1 left AC. Medication Ordered: Dilaudid IV 1 mg (1 mg q 15 minutes for a total of 4 mg).
== END 2017-05-22 13:45 | disposition short-term general hospital (02) ==
LOC: ED SRH 11:28
DX: N44.00 Torsion of testis, unspecified (principal); F11.10 Opioid abuse, uncomplicated; F15.10 Other stimulant abuse, uncomplicated; Z72.0 Tobacco use
CPT/HCPCS: 90004; 90100; 92235; 92530; 92760; 92761; 92762; 92763; 92764; 92765; 92766; 92767; 95059